=== PATIENT | female | born 1955 | race Caucasian/White ===

== ENCOUNTER → 2024-01-10 | Outpatient (CLI) | payer MEDICARE, BC ==
[2024-01-10 09:47] LABS: Very Low Density Lipoprot Chol 21 mg/dL (6-32)
[2024-01-10 09:48] LABS: CHOL/HDL RATIO 2.9; Cholesterol 275 mg/dL (50-200); HDL Cholesterol 96 mg/dL (>39); LDL/HDL RATIO 1.6; Low Density Lipoprotein Chol 158 mg/dL (0-110); Triglycerides 105 mg/dL (30-160)
[2024-01-16 01:22] LABS: PTHRP BY LC-MS/MS,PLASMA 2.6 pmol/L (0.0-3.4)
== END | disposition home or self-care (01) ==
LOC: LAB 08:33 → LAB SHORT 08:33
PROVIDERS: Family Medicine
DX: Z13.1 Encounter for screening for diabetes mellitus (principal); E21.0 Primary hyperparathyroidism; E78.5 Hyperlipidemia, unspecified; Z83.49 Family history of other endocrine, nutritional and metabolic diseases
CPT/HCPCS: 80061; 82306; 82330; 82542; 83036; 83970; 84443